=== PATIENT | female | born 1960 ===

== ENCOUNTER 2024-03-11 17:20 | Emergency (ER) | payer OTHER ==
[~2024-03-11] VITALS: Ht 162.6 cm; Wt 54.5 kg
[2024-03-11 17:29] VITALS: TEMP 98.8
[2024-03-11] MEDS ORDERED: MIRT-89 PO (17:33)
[2024-03-11] MEDS ORDERED: INSU100I34 SQ (17:33)
[2024-03-11] MEDS ORDERED: ASCO500 PO (17:33)
[2024-03-11] MEDS ORDERED: PANT-31 PO (17:33)
[2024-03-11] MEDS ORDERED: AMLO-257 PO (17:33)
[2024-03-11] MEDS ORDERED: MELA3TAB89 PO (17:33)
[2024-03-11] MEDS ORDERED: MAG30ORA11 PO (17:33)
[2024-03-11] MEDS ORDERED: FERR325T27 PO (17:33)
[2024-03-11] MEDS ORDERED: INSU100I26 SQ (17:33)
[2024-03-11] MEDS ORDERED: ASPI-1444 PO (17:33)
[2024-03-11] MEDS ORDERED: ATOR40TA28 PO (17:33)
[2024-03-11 17:41] LABS: GLUCOMETER DEV NAME(LOC) ER.7; GLUCOSE,POINT OF CARE 163 MG/DL (70-110)
[2024-03-11 20:30] VITALS: BP 125/80; PULSE 88; RESP 16; O2SAT 99
== END 2024-03-11 21:14 | disposition home or self-care (01) ==
LOC: EMS 17:20
DX: S00.83XA Contusion of other part of head, initial encounter (principal); E11.9 Type 2 diabetes mellitus without complications; E78.00 Pure hypercholesterolemia, unspecified; I10 Essential (primary) hypertension; V89.2XXA Person injured in unspecified motor-vehicle accident, traffic, initial encounter; Y93.89 Activity, other specified; Y92.410 Unspecified street and highway as the place of occurrence of the external cause; Y99.8 Other external cause status
CPT/HCPCS: 70450; 82962; 99284